=== PATIENT | female | born 1940 | race Hispanic/Latino ===

== ENCOUNTER 2018-01-11 05:41 | Day surgery (SDC) | payer MEDICARE ==
[2018-01-08 07:39] VITALS: BMI 23.6
[2018-01-11] MEDS ORDERED: Midazolam 2 MG/2 ML VIAL ONE (07:39)
[2018-01-11] MEDS ORDERED: Propofol 10 mg/ml Inj (20 ML) ONE (07:40)
[2018-01-11] MEDS ORDERED: Lidocaine 2% MPF (5 ml) Inj ONE (07:48)
[2018-01-11] MEDS ORDERED: Bupivacaine 0.25% 20 ML INJ IJ ONE (07:48)
[2018-01-11] MEDS ORDERED: ceFAZolin IV 1 gm in Dextrose 2 GM/100 ML BAG IVPB ONE (07:48)
[2018-01-11] MEDS ORDERED: Lidocaine Hydrochloride 5 ML INJ ONE (08:23)
[2018-01-11] MEDS ORDERED: HYDROmorphone 0.5 mg/0.5 ml ISec IVP PRN (08:41)
--- NOTE | 2018-01-11 08:43 | PCM.SURG1 ---
Surgeon's Initial Post Op Note - Surgeon's Notes Surgeon: Dr. Marbin Lucio, DPM Software Educator: Dr. Rudi Butts PGY-2, Dr. Zion Sotomayor Type of Anesthesia: IV Sedation, Local Anesthesia Administered By: Dr. 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 injectables: 5 cc of 1:1 2% lidocaine plain and .25%marcaine plain. materials: 3-0 vicryl, 3-0 nylon Post-Operative Diagnosis: same Operation Performed: 1. right 5th digit hammertoe correction, hemiphalangectomy Specimen/Specimens Removed: 5th proximal phalanx bone Estimated Blood Loss: EBL {In ML}: 0 Blood Products Given: N/A Drains Used: No Drains Post-Op Condition: Good Date of Surgery/Procedure: 01/11/18 Time of Surgery/Procedure: 07:30
--- NOTE | 2018-01-11 09:44 | RAD ---
Date of service: 01/11/2018 PROCEDURE: Right Foot Radiographs. HISTORY: s/p right foot surgery COMPARISON: 01/08/2018 FINDINGS: BONES: Interval partial resection 5th proximal middle phalanges noted. No irregular cortical margins are periosteal reaction here seen to suggest osteomyelitis. Prominent inferior calcaneal spur. Achilles insertional enthesophyte -similar JOINTS: First metatarsal-phalangeal joint arthrosis and hallux valgus orientation noted. Sesamoid hallux arthrosis SOFT TISSUES: Increased density medial 1st MTP compatible with probable concomitant bunion. Overlying soft tissue bandaging OTHER FINDINGS: Prior digit clinodactyly no longer suggested. Hallux valgus orientation of 2nd and 3rd toes noted. IMPRESSION: Interval surgical changes 5th digit as above. No radiographic findings seen to suggest osteomyelitis.
[2018-01-11 12:28] VITALS: BP 105/56; PULSE 59; RESP 15; TEMP 97.7; O2SAT 98
--- NOTE | 2018-01-11 14:11 | PCM.OP ---
Operative Report - Operative Report Date of Surgery/Procedure: 01/11/18 Time of Surgery/Procedure: 07:30 Surgeon: Marbin Clement DPM Business Director: Dr. Rudi Butts DPM PGY-2, Dr. Zion Sotomayor DPM PGY-1 Anesthesia/Sedation: Dr. Farris/IV sedation with local Pre-Operative Diagnosis: right 5th digit hammertoe deformity Post-Operative Diagnosis: same Indication for Surgery: Indications: The patient is a 77 year old female with the above diagnoses. The patient has exhausted all conservative treatment at this time and now requests surgical intervention. The patient signed the consent after careful explanation of risks, benefits, complication and alternatives for surgical procedure. No guarantees were given nor implied. Operative Findings: see description below Procedure/Operation Description: Operation: modified hemiphalangectomy 5th digit right foot. Preparation: The patient was brought into the operating room and placed on the operating room table in a supine position. A well-padded pneumatic ankle tourniquet was applied to the patients right ankle in the supramalleolar position. A timeout was performed for identification of the correct patient and procedure. The patient received a total of 5 mL of 1:1 mixture of 0.25% marcaine plain in a local block type fashion to the right 5th digit. Once local anesthesia was achieved, the right foot was then prepped and draped in normal sterile manner. The patients right foot was then exsanguinated and the pneumatic ankle tourniquet was inflated to 250 mmg HG and the procedure began. Attention was then directed to the fifth digit of the patients foot which was noted to be contracted with adductovarus deformity. There was a callus on the lateral aspect of the PIPJ of the 5th digit. Utilizing a pickup and a #10 blade, an approximate 3 cm incision was made on the dorsal aspect of the proximal interphalangeal joint of the fifth digit in a semi-elliptical type orientation. Sharp dissection was carried down through the deep tissues being careful to identify and retract all vital neurovascular structures. All bleeders were ligated and cauterized. At this time a transverse tenotomy was performed. During this time it was noted that the proximal interphalangeal joint was fused, arthiritic and erosive in nature. Using the oscillating saw, the proximal interphalangeal joint was defined and a thin proximal portion of the middle phalanx was resected. Next the head of the proximal phalanx was then freed of its capsular and ligamentous attachments. Next utilizing the oscillating bone saw the head of the proximal phalanx was resected and passed from the operative site. During this time it was noted that the hammertoe deformity was correct and in good alignment. The wound was then flushed with copious amounts of sterile normal saline. The tendons were then reapproximated and sutured with #3-0 Vicryl. The skin was reapproximated and sutured with #3-0 nylon. Surgical site was then dressed with xeroform, dsd, kerlix and light Coban Estimated Blood Loss: 0 Complications: none, stable Specimen: 5th digit bone right foot Discharge & Condition: Postoperative Condition: The patient tolerated the anesthesia and procedure well and was escorted to the recovery room with vital signs stable and neurovascular status intact to the right foot. This patient will be full weight bearing to the heels in a surgical shoe and will follow up with Dr. Lucio in his office.
== END 2018-01-11 11:42 | disposition home or self-care (01) ==
LOC: C.SDS 05:41
PROVIDERS: ATTEND Podiatrist
DX: M20.41 Other hammer toe(s) (acquired), right foot (principal); M89.8X7 Other specified disorders of bone, ankle and foot
CPT/HCPCS: 28285; 73630; 88304; J0690; J2250; J2704; J3010